=== PATIENT | female | born 1950 | race Caucasian/White ===

== ENCOUNTER 2018-03-07 08:59 | Inpatient (IN) | payer MEDICARE, MEDICAID ==
[2018-03-02 15:24] LABS: BASOPHILS % (AUTO) 0.2 % (0-1); EOSINOPHILS # (AUTO) 0.1 X10'3 (0-0.9); EOSINOPHILS % (AUTO) 1.3 % (0-6); LYMPHOCYTES # (AUTO) 1.2 X10'3 (1.1-4.8); LYMPHOCYTES % (AUTO) 24.4 % (21-51); MEAN CORPUSCULAR HEMOGLOBIN 30.6 PG (27.0-31.0); MEAN CORPUSCULAR HGB CONC 34.8 % (33.0-36.5); MEAN CORPUSCULAR VOLUME 87.8 FL (78-98); MEAN PLATELET VOLUME 6.9 FL (7.4-10.4); MONOCYTES # (AUTO) 0.6 X10'3 (0-0.9); MONOCYTES % (AUTO) 11.9 % (2-12); NEUTROPHILS % (AUTO) 62.2 % (42-75); PRE OP HEMATOCRIT 33.2 % (35.0-45.0); PRE OP HEMOGLOBIN 11.6 g/dL (12.0-16.0); PRE OP PLATELET COUNT 274 X10'3 (140-440); RED BLOOD COUNT 3.78 X10'6 (4.20-5.60); RED CELL DISTRIBUTION WIDTH 13.2 % (11.5-14.5)
[2018-03-02 15:36] LABS: PRE OP PROTIME 10.6 SECONDS (9.0-12.0)
[2018-03-02 15:40] LABS: ALBUMIN 3.7 G/DL (3.4-5.0); ALBUMIN/GLOBULIN RATIO 0.9 (1.1-1.5); ALKALINE PHOSPHATASE 143 IU/L (46-116); BLOOD UREA NITROGEN 14 MG/DL (7-18); BUN/CREATININE RATIO 22.6 (6.6-38.0); CALCIUM 8.8 MG/DL (8.5-10.1); CHLORIDE 96 MMOL/L (99-107); CREATININE 0.62 MG/DL (0.40-0.90); PRE OP ALT 24 U/L (30-65); PRE OP ANION GAP 7 (8-16); PRE OP AST 23 U/L (10-37); PRE OP BILIRUB, TOTAL 0.2 MG/DL (0.0-1.0); PRE OP GLUCOSE 97 MG/DL (70-104); PRE OP POTASSIUM 4.1 MMOL/L (3.4-5.1); PRE OP SODIUM 133 MMOL/L (135-145); TOTAL CARBON DIOXIDE 29.7 MMOL/L (24-32); TOTAL PROTEIN 7.7 G/DL (6.4-8.2); eGFR > 90 ML/MIN
[~2018-03-07] VITALS: Ht 142.2 cm; Wt 63.3 kg
[2018-03-07] VITALS (15 sets, daily range): BP systolic 85–184; BP diastolic 47–96
[~2018-03-07 08:59] MED LIST: ACET-2615 PO; ANAS1TAB PO; ASCO-22 PO; ATOR10TA87 PO; BUPR1PAT TOP; CARB200C4 PO; CLON0.2T PO; DOCU-28 PO; IBUP-1985 PO; LOPE2CAP PO; LOSA50TA37 PO; MULT-685; OXYB5TAB11 PO; QUET-1 PO; SERT50TA10 PO; TRAZ-143 PO; VANCOMYCIN INJ 1000 MG in NORMAL SALINE 250ml IV.SOLN IV ONE; ceFAZolin inj. 2,000 MG in dextrose 5%-water 100 ML IV ONE; famotidine 20mg tablet PO ONE; ringers solution, lacted 1,000 ML IV SCH; tranexamic acid inj. 1,000 MG in normal saline 100ml IV soln 90 ML IV ONE
[2018-03-07] MEDS ORDERED: ceFAZolin 1000mg inj ONE (09:30)
[2018-03-07] MEDS ORDERED: FERR325T28 PO (09:33)
[2018-03-07] MEDS ORDERED: sevoflurane 250ml liquid IH ONE (10:23)
[2018-03-07] MEDS ORDERED: midazolam 2 mg/2 ml injection ONE (10:28)
[2018-03-07] MEDS ORDERED: fentaNYL /PF 50mcg/ml 5ml ampule ONE (10:28)
[2018-03-07] MEDS ORDERED: rocuronium 10mg/ml inj IV ONE (11:16)
[2018-03-07] MEDS ORDERED: propofol inj 20 ML IV ONE (11:17)
[2018-03-07] MEDS ORDERED: labetalol 5mg/ml 20ml inj. IV ONE (11:17)
[2018-03-07] MEDS ORDERED: ringers solution, lacted 1,000 ML IV SCH (11:47)
[2018-03-07] MEDS ORDERED: ondansetron/PF 4mg/2ml inj IV PRN ×2 (11:50→13:05)
[2018-03-07] MEDS ORDERED: proCHLORperazine 10 MG/2 ml inj IV PRN (11:50)
[2018-03-07] MEDS ORDERED: morphine 4 MG/ML inj SYRINge IV PRN ×2 (11:50)
[2018-03-07] MEDS ORDERED: HYDROmorphone inj. 0.5 MG/0.5 ML DISP.SYRIN IV PRN ×2 (11:50)
[2018-03-07] MEDS ORDERED: hydrALAZINE 20mg/ml inj. IV PRN (11:50)
[2018-03-07] MEDS ORDERED: acetaminophen 1,000mg/100ml IV 100 ML IV PRN (11:50)
[2018-03-07] MEDS ORDERED: labetalol 20mg/4ml (5mg/ml) syringe IV PRN (11:50)
[2018-03-07] MEDS ORDERED: meperidine/PF 25mg/ml syringe IV PRN (11:50)
[2018-03-07] MEDS ORDERED: HYDROcodone/acetaminophen 10/325mg tab PO PRN (13:05)
[2018-03-07] MEDS ORDERED: HYDROmorphone 1 mg/ml syringe IV PRN (13:05)
[2018-03-07] MEDS ORDERED: bisacodyl 10mg suppository rectal RC PRN (13:05)
[2018-03-07] MEDS ORDERED: diphenhydrAMINE 25mg capsule PO PRN ×2 (13:05)
[2018-03-07] MEDS ORDERED: acetaminophen 325mg tablet PO PRN (13:05)
[2018-03-07] MEDS ORDERED: magnesium hydroxide 30ml (MOM) UD suspension PO PRN (13:05)
[2018-03-07] MEDS ORDERED: loperamide 2mg capsule PO PRN (13:05)
[2018-03-07] MEDS: potassium cl 20mEq in 1/2 NS 1,000 ML IV SCH (15:29)
[2018-03-07] MEDS: ceFAZolin 1GM/D5W- ADD-VANTAGE 50 ML IV SCH ×2 (15:54→23:50)
[2018-03-07] MEDS ORDERED: TRANEXAMIC ACID IV ONE (16:00)
[2018-03-07] MEDS ORDERED: NORMAL SALINE IV ONE (16:00)
[2018-03-07] MEDS ORDERED: aspirin 325mg tablet PO SCH (17:30)
[2018-03-07] MEDS: HYDROcodone/acetaminophen 10/325mg tab PO PRN (18:34)
[2018-03-07] MEDS ORDERED: vancomycin/NS 1 GM ADD-VANTAGE 250 ML IV SCH (20:00)
[2018-03-07] MEDS: cloNIDine 0.1 mg tablet PO SCH (20:31)
[2018-03-07] MEDS: docusate sod 100mg capsule PO SCH (20:31)
[2018-03-07] MEDS: anastrozole 1 MG tablet PO SCH (20:32)
[2018-03-07] MEDS: traZODone 50mg tablet PO SCH (20:32)
[2018-03-07] MEDS: carBAMazepine Ext. Release 200 MG TAB.ER.12H PO SCH (20:32)
[2018-03-07] MEDS: quetiapine 100mg tablet PO SCH (20:33)
[2018-03-07] MEDS: oxybutynin 5mg tablet PO SCH (20:33)
[2018-03-07] MEDS: sennosides 8.6mg tablet PO SCH (20:33)
[2018-03-08] MEDS: potassium cl 20mEq in 1/2 NS 1,000 ML IV SCH ×2 (02:24→08:25)
[2018-03-08 02:45] VITALS: BP 128/65
[2018-03-08] MEDS: HYDROcodone/acetaminophen 10/325mg tab PO PRN ×2 (05:27→12:43)
[2018-03-08 06:15] VITALS: BP 132/67
[2018-03-08 07:08] LABS: BASOPHILS % (AUTO) 0.2 % (0-1); EOSINOPHILS % (AUTO) 0 % (0-6); HEMATOCRIT 26.8 % (35.0-45.0); HEMOGLOBIN 9.3 g/dl (12.0-16.0); LYMPHOCYTES # (AUTO) 0.7 X10'3 (1.1-4.8); LYMPHOCYTES % (AUTO) 8.5 % (21-51); MEAN CORPUSCULAR HEMOGLOBIN 30.2 PG (27.0-31.0); MEAN CORPUSCULAR HGB CONC 34.5 % (33.0-36.5); MEAN CORPUSCULAR VOLUME 87.5 FL (78-98); MEAN PLATELET VOLUME 7.3 FL (7.4-10.4); MONOCYTES # (AUTO) 0.9 X10'3 (0-0.9); MONOCYTES % (AUTO) 10.3 % (2-12); NEUTROPHILS # (AUTO) 6.8 X10'3 (1.8-7.7); PLATELET COUNT 253 X10'3 (140-440); RED BLOOD COUNT 3.06 X10'6 (4.20-5.60); RED CELL DISTRIBUTION WIDTH 13.6 % (11.5-14.5); WHITE BLOOD COUNT 8.4 X10'3 (4.5-11.0)
[2018-03-08 07:33] LABS: ALANINE AMINOTRANSFERASE 19 U/L (12-78); ALBUMIN 2.9 G/DL (3.4-5.0); ALBUMIN/GLOBULIN RATIO 0.9 (1.1-1.5); ALKALINE PHOSPHATASE 91 IU/L (46-116); ANION GAP 8 (8-16); ASPARTATE AMINO TRANSFERASE 27 U/L (10-37); BILIRUBIN,TOTAL 0.3 MG/DL (0.1-1.0); BLOOD UREA NITROGEN 12 MG/DL (7-18); BUN/CREATININE RATIO 18.8 (6.6-38.0); CALCIUM 8.2 MG/DL (8.5-10.1); CHLORIDE 100 MMOL/L (99-107); CREATININE 0.64 MG/DL (0.40-0.90); GLUCOSE 136 MG/DL (70-104); SODIUM 133 MMOL/L (135-145); TOTAL PROTEIN 6.2 G/DL (6.4-8.2); eGFR > 90 ML/MIN
[2018-03-08] MEDS: losartan 50mg tablet PO SCH (08:23)
[2018-03-08] MEDS: carBAMazepine Ext. Release 200 MG TAB.ER.12H PO SCH ×3 (08:23→20:26)
[2018-03-08] MEDS: oxybutynin 5mg tablet PO SCH ×3 (08:23→20:27)
[2018-03-08] MEDS: sertraline 50mg tablet PO SCH (08:23)
[2018-03-08] MEDS: docusate sod 100mg capsule PO SCH ×2 (08:23→20:26)
[2018-03-08] MEDS: cloNIDine 0.1 mg tablet PO SCH ×2 (08:23→20:28)
[2018-03-08] MEDS: aspirin 81mg tablet.DR PO SCH (08:24)
[2018-03-08 10:00] VITALS: BP 93/55
[2018-03-08 14:15] VITALS: BP 123/68
[2018-03-08] MEDS ORDERED: normal saline 1000ml 1,000 ML IV ONE (16:45)
[2018-03-08 18:00] VITALS: BP 145/75
[2018-03-08] MEDS: traZODone 50mg tablet PO SCH (20:26)
[2018-03-08] MEDS: sennosides 8.6mg tablet PO SCH (20:28)
[2018-03-08] MEDS: anastrozole 1 MG tablet PO SCH (20:28)
[2018-03-08] MEDS: quetiapine 100mg tablet PO SCH (20:28)
[2018-03-08 22:00] VITALS: BP 102/57
[2018-03-09 02:00] VITALS: BP 88/52
[2018-03-09 05:00] VITALS: BP 92/50
[2018-03-09] MEDS: HYDROcodone/acetaminophen 10/325mg tab PO PRN (05:38)
[2018-03-09 05:47] LABS: BASOPHILS % (AUTO) 0.2 % (0-1); EOSINOPHILS # (AUTO) 0.1 X10'3 (0-0.9); EOSINOPHILS % (AUTO) 1.1 % (0-6); HEMATOCRIT 22.3 % (35.0-45.0); HEMOGLOBIN 7.9 g/dl (12.0-16.0); LYMPHOCYTES % (AUTO) 11.7 % (21-51); MEAN CORPUSCULAR HEMOGLOBIN 30.9 PG (27.0-31.0); MEAN CORPUSCULAR HGB CONC 35.1 % (33.0-36.5); MEAN CORPUSCULAR VOLUME 87.8 FL (78-98); MEAN PLATELET VOLUME 7.4 FL (7.4-10.4); MONOCYTES # (AUTO) 1.2 X10'3 (0-0.9); MONOCYTES % (AUTO) 13.6 % (2-12); NEUTROPHILS # (AUTO) 6.6 X10'3 (1.8-7.7); NEUTROPHILS % (AUTO) 73.4 % (42-75); PLATELET COUNT 165 X10'3 (140-440); RED BLOOD COUNT 2.54 X10'6 (4.20-5.60)
[2018-03-09 05:53] LABS: ALANINE AMINOTRANSFERASE 20 U/L (12-78); ALBUMIN 2.4 G/DL (3.4-5.0); ALBUMIN/GLOBULIN RATIO 0.7 (1.1-1.5); ALKALINE PHOSPHATASE 74 IU/L (46-116); ANION GAP 6 (8-16); ASPARTATE AMINO TRANSFERASE 21 U/L (10-37); BILIRUBIN,TOTAL 0.4 MG/DL (0.1-1.0); BLOOD UREA NITROGEN 14 MG/DL (7-18); BUN/CREATININE RATIO 18.7 (6.6-38.0); CALCIUM 8.3 MG/DL (8.5-10.1); CHLORIDE 101 MMOL/L (99-107); CREATININE 0.75 MG/DL (0.40-0.90); GLUCOSE 99 MG/DL (70-104); POTASSIUM 4.2 MMOL/L (3.5-5.1); SODIUM 131 MMOL/L (135-145); TOTAL PROTEIN 5.7 G/DL (6.4-8.2); eGFR 77 ML/MIN
[2018-03-09] MEDS: oxybutynin 5mg tablet PO SCH ×3 (07:34→21:28)
[2018-03-09] MEDS: docusate sod 100mg capsule PO SCH ×2 (07:34→20:10)
[2018-03-09] MEDS: carBAMazepine Ext. Release 200 MG TAB.ER.12H PO SCH ×3 (07:34→21:28)
[2018-03-09] MEDS: aspirin 81mg tablet.DR PO SCH ×2 (07:34→17:28)
[2018-03-09] MEDS: sertraline 50mg tablet PO SCH (07:35)
[2018-03-09] MEDS: cloNIDine 0.1 mg tablet PO SCH ×2 (07:39→20:10)
[2018-03-09] MEDS: losartan 50mg tablet PO SCH (07:39)
[2018-03-09] MEDS ORDERED: HYDROcodone/acetaminophen 10/325mg tab PO ONE (07:40)
[2018-03-09 10:00] VITALS: BP 110/58
[2018-03-09] MEDS: potassium cl 20mEq in 1/2 NS 1,000 ML IV SCH (12:22)
[2018-03-09 18:00] VITALS: BP 143/80
[2018-03-09] MEDS: sennosides 8.6mg tablet PO SCH (21:00)
[2018-03-09] MEDS: anastrozole 1 MG tablet PO SCH (21:25)
[2018-03-09] MEDS: traZODone 50mg tablet PO SCH (21:28)
[2018-03-09] MEDS: quetiapine 100mg tablet PO SCH (21:28)
[2018-03-09 22:00] VITALS: BP 103/53
[2018-03-10 05:57] LABS: BASOPHILS % (AUTO) 0.2 % (0-1); EOSINOPHILS % (AUTO) 0.1 % (0-6); HEMATOCRIT 22.4 % (35.0-45.0); HEMOGLOBIN 7.8 g/dl (12.0-16.0); LYMPHOCYTES % (AUTO) 13.7 % (21-51); MEAN CORPUSCULAR HEMOGLOBIN 30.5 PG (27.0-31.0); MEAN CORPUSCULAR HGB CONC 34.6 % (33.0-36.5); MEAN CORPUSCULAR VOLUME 88.2 FL (78-98); MEAN PLATELET VOLUME 7.2 FL (7.4-10.4); MONOCYTES # (AUTO) 0.8 X10'3 (0-0.9); MONOCYTES % (AUTO) 10.6 % (2-12); NEUTROPHILS # (AUTO) 5.6 X10'3 (1.8-7.7); NEUTROPHILS % (AUTO) 75.4 % (42-75); PLATELET COUNT 177 X10'3 (140-440); RED BLOOD COUNT 2.54 X10'6 (4.20-5.60); RED CELL DISTRIBUTION WIDTH 13.5 % (11.5-14.5); WHITE BLOOD COUNT 7.5 X10'3 (4.5-11.0)
[2018-03-10 06:00] VITALS: BP 124/71
[2018-03-10 06:36] LABS: ALANINE AMINOTRANSFERASE 16 U/L (12-78); ALBUMIN 2.2 G/DL (3.4-5.0); ALBUMIN/GLOBULIN RATIO 0.6 (1.1-1.5); ALKALINE PHOSPHATASE 76 IU/L (46-116); ANION GAP 9 (8-16); ASPARTATE AMINO TRANSFERASE 25 U/L (10-37); BILIRUBIN,TOTAL 0.3 MG/DL (0.1-1.0); BLOOD UREA NITROGEN 10 MG/DL (7-18); BUN/CREATININE RATIO 18.2 (6.6-38.0); CALCIUM 8.2 MG/DL (8.5-10.1); CHLORIDE 101 MMOL/L (99-107); CREATININE 0.55 MG/DL (0.40-0.90); GLUCOSE 98 MG/DL (70-104); POTASSIUM 4.2 MMOL/L (3.5-5.1); SODIUM 133 MMOL/L (135-145); TOTAL CARBON DIOXIDE 23.3 MMOL/L (24-32); eGFR > 90 ML/MIN
[2018-03-10] MEDS: sertraline 50mg tablet PO SCH (07:58)
[2018-03-10] MEDS: cloNIDine 0.1 mg tablet PO SCH (07:58)
[2018-03-10] MEDS: losartan 50mg tablet PO SCH (07:58)
[2018-03-10] MEDS: aspirin 81mg tablet.DR PO SCH (07:58)
[2018-03-10] MEDS: oxybutynin 5mg tablet PO SCH ×2 (07:58→13:30)
[2018-03-10] MEDS: docusate sod 100mg capsule PO SCH (07:58)
[2018-03-10] MEDS: HYDROcodone/acetaminophen 10/325mg tab PO PRN (07:59)
[2018-03-10] MEDS: carBAMazepine Ext. Release 200 MG TAB.ER.12H PO SCH ×2 (08:03→14:16)
[2018-03-10 10:00] VITALS: BP 86/46
[2018-03-11] MEDS ORDERED: BUPRENORPHINE 5 MCG/HR TOP SCH (08:00)
== END 2018-03-10 18:00 | DRG 470 ==
LOC: PAS IN 08:59 → EDSTATUS 11:00 → ORTHO 4S 14:30
PROVIDERS: ADMIT Orthopaedic Surgery; ATTEND Orthopaedic Surgery
PROC: 0SR90JZ Replacement of Right Hip Joint with Synthetic Substitute, Open Approach (ICD-10-PCS; principal; 2018-03-07 10:23)
DX: M16.11 Unilateral primary osteoarthritis, right hip (principal); D62 Acute posthemorrhagic anemia; F32.9 Major depressive disorder, single episode, unspecified; I10 Essential (primary) hypertension; R62.50 Unspecified lack of expected normal physiological development in childhood; Z88.8 Allergy status to other drugs, medicaments and biological substances; Z85.3 Personal history of malignant neoplasm of breast; Z87.891 Personal history of nicotine dependence; Z87.820 Personal history of traumatic brain injury; Z92.3 Personal history of irradiation
CPT/HCPCS: 36415; 80053; 85025; 85610; 85730; 86885; 86900; 86901; 86920; 87070; 93005; 97110; 97116; 97161; 97530; A6449; A7000; C1758; C1776; J0131; J0360; J0690; J2250; J2405; J2704; J3010; J3370; J3490; J7030; J7060; J7120

== ENCOUNTER 2019-03-06 22:05 | Emergency (ER) | payer MEDICARE, MEDICAID ==
[~2019-03-06] VITALS: Ht 274.3 cm; Wt 53.7 kg
[~2019-03-06 22:05] MED LIST changes: -ACET-2615 PO; -ASCO-22 PO; -ATOR10TA87 PO; -IBUP-1985 PO; -LOSA50TA37 PO; +LOSA50TA64 PO; -MULT-685; -TRAZ-143 PO; +TRAZ-251 PO; -VANCOMYCIN INJ 1000 MG in NORMAL SALINE 250ml IV.SOLN IV ONE; -ceFAZolin inj. 2,000 MG in dextrose 5%-water 100 ML IV ONE; -famotidine 20mg tablet PO ONE; -ringers solution, lacted 1,000 ML IV SCH; -tranexamic acid inj. 1,000 MG in normal saline 100ml IV soln 90 ML IV ONE
[2019-03-06 23:14] VITALS: BP 177/81
== END 2019-03-06 23:43 | disposition home or self-care (01) ==
LOC: ER 22:06
DX: I10 Essential (primary) hypertension (principal); C50.919 Malignant neoplasm of unspecified site of unspecified female breast; Z88.8 Allergy status to other drugs, medicaments and biological substances; Z79.899 Other long term (current) drug therapy; Z86.14 Personal history of Methicillin resistant Staphylococcus aureus infection; Z98.890 Other specified postprocedural states
CPT/HCPCS: 99281

== ENCOUNTER 2019-04-16 18:54 | Emergency (ER) | payer MEDICARE, MEDICAID ==
[~2019-04-16] VITALS: Ht 152.4 cm; Wt 60.0 kg
[~2019-04-16 18:54] MED LIST changes: -CARB200C4 PO; +CARB200C7 PO; -OXYB5TAB11 PO; +OXYB5TAB16 PO
[2019-04-16 19:22] LABS: CLARITY,URINE CLEAR (Clear); COLOR,URINE YELLOW (Yellow); GLUCOSE, URINE NEGATIVE (Neg); KETONES,URINE NEGATIVE (Neg); LEUKOCYTE ESTERASE ,URINE NEGATIVE (Neg); NITRITES, URINE NEGATIVE (Neg); OCCULT BLOOD,URINE TRACE-INTACT (Neg); PROTEIN,URINE TRACE mg/dl (Neg); UROBILINOGEN,URINE 0.2 E.U/dL (0.2-1.0)
[2019-04-16 19:30] LABS: UA COLLECTION TYPE CLN CATCH MIDSTREAM
[2019-04-16 19:34] LABS: AMORPHOUS URATES 1+; BACTERIA,URINE 1+ /HPF (Neg); MUCUS STRANDS FEW /LPF (Neg); RBC,URINE 0-2 /HPF (0-2); SQUAMOUS EPITHELIAL CELL,UR FEW /LPF (FEW); WBC,URINE 0-4 /HPF (0-4)
[2019-04-16 20:10] VITALS: BP 157/100
[2019-04-16 20:20] LABS: BASOPHILS # (AUTO) 0.1 X10'3 (0-0.2); BASOPHILS % (AUTO) 0.6 % (0-1); EOSINOPHILS # (AUTO) 0.2 X10'3 (0-0.9); EOSINOPHILS % (AUTO) 1.6 % (0-6); HEMATOCRIT 35.6 % (35.0-45.0); HEMOGLOBIN 12.5 g/dl (12.0-16.0); LYMPHOCYTES # (AUTO) 1.9 X10'3 (1.1-4.8); MEAN CORPUSCULAR HGB CONC 35.2 g/dL (33.0-36.5); MEAN CORPUSCULAR VOLUME 88.1 FL (78-98); MEAN PLATELET VOLUME 7.2 FL (7.4-10.4); MONOCYTES # (AUTO) 0.9 X10'3 (0-0.9); MONOCYTES % (AUTO) 10.1 % (2-12); NEUTROPHILS # (AUTO) 6.3 X10'3 (1.8-7.7); NEUTROPHILS % (AUTO) 67.7 % (42-75); PLATELET COUNT 268 X10'3 (140-440); RED BLOOD COUNT 4.04 X10'6 (4.20-5.60); RED CELL DISTRIBUTION WIDTH 12.9 % (11.5-14.5); WHITE BLOOD COUNT 9.3 X10'3 (4.5-11.0)
[2019-04-16 20:34] LABS: ALANINE AMINOTRANSFERASE 25 U/L (12-78); ALBUMIN 3.7 G/DL (3.4-5.0); ALBUMIN/GLOBULIN RATIO 0.9 (1.1-1.5); ALKALINE PHOSPHATASE 119 IU/L (46-116); ANION GAP 9 (8-16); ASPARTATE AMINO TRANSFERASE 22 U/L (10-37); BILIRUBIN,TOTAL 0.3 MG/DL (0.1-1.0); BLOOD UREA NITROGEN 12 MG/DL (7-18); BUN/CREATININE RATIO 22.6 (6.6-38.0); CALCIUM 8.9 MG/DL (8.5-10.1); CHLORIDE 97 MMOL/L (99-107); CREATININE 0.53 MG/DL (0.40-0.90); GLUCOSE 108 MG/DL (70-104); PARTIAL THROMBOPLASTIN TIME 32 SECONDS (22-32); POTASSIUM 4.2 MMOL/L (3.5-5.1); SODIUM 134 MMOL/L (135-145); TOTAL CARBON DIOXIDE 27.6 MMOL/L (24-32); TOTAL PROTEIN 7.6 G/DL (6.4-8.2); eGFR > 90 ML/MIN
[2019-04-16 20:36] LABS: TROPONIN I < 0.04 NG/ML (0.0-0.05)
--- NOTE | 2019-04-16 21:10 | NUR ---
report called to elsie owens at [facility] emergency dept.
[2019-04-16 21:19] LABS: CARBAMAZEPINE (TEGRETOL) 11.1 UG/ML (4.0-12.0)
== END 2019-04-16 22:56 | disposition short-term general hospital (02) ==
LOC: ER 18:55
DX: S06.5X0A Traumatic subdural hemorrhage without loss of consciousness, initial encounter (principal); R35.0 Frequency of micturition; I10 Essential (primary) hypertension; Z88.4 Allergy status to anesthetic agent; Z88.8 Allergy status to other drugs, medicaments and biological substances; Z79.899 Other long term (current) drug therapy; Z86.14 Personal history of Methicillin resistant Staphylococcus aureus infection; Z85.3 Personal history of malignant neoplasm of breast; Z98.890 Other specified postprocedural states; W18.39XA Other fall on same level, initial encounter; Y93.01 Activity, walking, marching and hiking; Y92.091 Bathroom in other non-institutional residence as the place of occurrence of the external cause; Y99.8 Other external cause status
CPT/HCPCS: 36415; 70450; 71045; 80053; 80156; 81001; 82140; 84484; 85025; 85610; 85730; 93005; 99285

== ENCOUNTER 2019-10-22 11:27 | Emergency (ER) | payer MEDICARE, MEDICAID ==
[~2019-10-22] VITALS: Ht 144.8 cm; Wt 55.0 kg
[2019-10-22] MEDS ORDERED: diphenhydrAMINE 50 mg/ml inj IV ONE (12:00)
[2019-10-22] MEDS ORDERED: metoclopramide 5 mg/ml inj IV ONE (12:00)
[2019-10-22 12:10] LABS: BASOPHILS % (AUTO) 0.2 % (0-1); EOSINOPHILS % (AUTO) 0.2 % (0-6); HEMATOCRIT 41.1 % (35.0-45.0); HEMOGLOBIN 14.3 g/dl (12.0-16.0); LYMPHOCYTES # (AUTO) 0.4 X10'3 (1.1-4.8); LYMPHOCYTES % (AUTO) 3.1 % (21-51); MEAN CORPUSCULAR HEMOGLOBIN 30.7 PG (27.0-31.0); MEAN CORPUSCULAR HGB CONC 34.7 g/dL (33.0-36.5); MEAN CORPUSCULAR VOLUME 88.5 FL (78-98); MEAN PLATELET VOLUME 7.3 FL (7.4-10.4); MONOCYTES # (AUTO) 0.4 X10'3 (0-0.9); MONOCYTES % (AUTO) 2.9 % (2-12); NEUTROPHILS # (AUTO) 12.2 X10'3 (1.8-7.7); NEUTROPHILS % (AUTO) 93.6 % (42-75); PLATELET COUNT 241 X10'3 (140-440); RED BLOOD COUNT 4.65 X10'6 (4.20-5.60); RED CELL DISTRIBUTION WIDTH 13.5 % (11.5-14.5)
[2019-10-22 12:26] LABS: ALANINE AMINOTRANSFERASE 24 U/L (12-78); ALBUMIN 4.4 G/DL (3.4-5.0); ALBUMIN/GLOBULIN RATIO 1.1 (1.1-1.5); ALKALINE PHOSPHATASE 107 IU/L (46-116); ANION GAP 8 (8-16); ASPARTATE AMINO TRANSFERASE 23 U/L (10-37); BILIRUBIN,TOTAL 0.3 MG/DL (0.1-1.0); BLOOD UREA NITROGEN 17 MG/DL (7-18); BUN/CREATININE RATIO 30.9 (6.6-38.0); CHLORIDE 100 MMOL/L (99-107); CREATININE 0.55 MG/DL (0.40-0.90); GLUCOSE 122 MG/DL (70-104); SODIUM 137 MMOL/L (135-145); TOTAL CARBON DIOXIDE 29.5 MMOL/L (24-32); TOTAL PROTEIN 8.3 G/DL (6.4-8.2); eGFR > 90 ML/MIN
[2019-10-22 12:28] LABS: AMYLASE 59 U/L (25-115); LIPASE 134 U/L (73-393)
[2019-10-22] MEDS ORDERED: losartan 50mg tablet PO ONE (13:15)
[2019-10-22] MEDS ORDERED: ONDA4TAB12 PO (13:25)
[2019-10-22 14:11] VITALS: BP 147/95
[2019-10-22 14:42] LABS: CLARITY,URINE SLIGHTLY CLOUDY (Clear); COLOR,URINE YELLOW (Yellow); GLUCOSE, URINE NEGATIVE (Neg); KETONES,URINE NEGATIVE (Neg); LEUKOCYTE ESTERASE ,URINE NEGATIVE (Neg); NITRITES, URINE NEGATIVE (Neg); OCCULT BLOOD,URINE SMALL (Neg); PROTEIN,URINE TRACE mg/dl (Neg); UROBILINOGEN,URINE 0.2 E.U/dL (0.2-1.0)
[2019-10-22 14:44] LABS: UA COLLECTION TYPE CLN CATCH MIDSTREAM
[2019-10-22 14:49] LABS: BACTERIA,URINE 1+ /HPF (Neg); WBC,URINE 0-4 /HPF (0-4)
[2019-10-22 14:50] LABS: AMORPHOUS PHOSPHATES 2+; MUCUS STRANDS NONE SEEN /LPF (Neg); RENAL CELLS, URINE FEW /HPF; SQUAMOUS EPITHELIAL CELL,UR MODERATE /LPF (FEW)
== END 2019-10-22 14:13 | disposition home or self-care (01) ==
LOC: ER 11:28
DX: R11.2 Nausea with vomiting, unspecified (principal); I10 Essential (primary) hypertension; Z86.14 Personal history of Methicillin resistant Staphylococcus aureus infection; Z85.3 Personal history of malignant neoplasm of breast; Z98.890 Other specified postprocedural states; Z88.8 Allergy status to other drugs, medicaments and biological substances; Z79.899 Other long term (current) drug therapy
CPT/HCPCS: 36415; 80053; 80156; 81001; 82150; 83690; 85025; 96374; 96375; 99283; J1200; J2765

== ENCOUNTER 2021-10-03 14:20 | Emergency (ER) | payer MEDICARE, MEDICAID ==
[~2021-10-03] VITALS: Ht 152.4 cm; Wt 61.0 kg
[~2021-10-03 14:20] MED LIST changes: +AMIO200T61 PO; +APIX5TAB3 PO; +ATOR20TA66 PO; -BUPR1PAT TOP; +CALC-2 PO; -CARB200C7 PO; +CARB200T40 PO; +CEFD300C3 PO; -CLON0.2T PO; +DILT60TA9 PO; +FERR325T29 PO; +FURO20TA4 PO; -LOPE2CAP PO; -LOSA50TA64 PO; +MAGN400T39 PO; +METO-395 PO; +MULT-1085 PO; +POLY119P2 PO; -QUET-1 PO; +QUET25TA36 PO; +SENN-263 PO; +SERT-433 PO; -SERT50TA10 PO
[2021-10-03 15:16] LABS: BASOPHILS % (AUTO) 0.2 % (0-1); EOSINOPHILS % (AUTO) 0.6 % (0-6); HEMATOCRIT 38.5 % (35.0-45.0); HEMOGLOBIN 13.2 g/dl (12.0-16.0); LYMPHOCYTES # (AUTO) 1.1 X10'3 (1.1-4.8); LYMPHOCYTES % (AUTO) 17.7 % (21-51); MEAN CORPUSCULAR HEMOGLOBIN 30.9 PG (27.0-31.0); MEAN CORPUSCULAR HGB CONC 34.4 g/dL (33.0-36.5); MEAN CORPUSCULAR VOLUME 89.9 FL (78-98); MEAN PLATELET VOLUME 7.1 FL (7.4-10.4); MONOCYTES # (AUTO) 0.6 X10'3 (0-0.9); MONOCYTES % (AUTO) 9.9 % (2-12); NEUTROPHILS # (AUTO) 4.6 X10'3 (1.8-7.7); NEUTROPHILS % (AUTO) 71.6 % (42-75); PLATELET COUNT 269 X10'3 (140-440); RED BLOOD COUNT 4.28 X10'6 (4.20-5.60); RED CELL DISTRIBUTION WIDTH 13.3 % (11.5-14.5); WHITE BLOOD COUNT 6.4 X10'3 (4.5-11.0)
[2021-10-03 15:24] LABS: APTT 29 SECONDS (22-32)
[2021-10-03 15:37] LABS: ALANINE AMINOTRANSFERASE 25 U/L (12-78); ALBUMIN 3.7 G/DL (3.4-5.0); ALBUMIN/GLOBULIN RATIO 0.9 (1.1-1.5); ALKALINE PHOSPHATASE 91 IU/L (46-116); ANION GAP 10 (8-16); ASPARTATE AMINO TRANSFERASE 17 U/L (10-37); BILIRUBIN,TOTAL 0.2 MG/DL (0.1-1.0); BLOOD UREA NITROGEN 21 MG/DL (7-18); BUN/CREATININE RATIO 28.8 (6.6-38.0); CALCIUM 8.9 MG/DL (8.5-10.1); CHLORIDE 101 MMOL/L (99-107); CREATININE 0.73 MG/DL (0.40-0.90); GLUCOSE 126 MG/DL (70-104); POTASSIUM 4.3 MMOL/L (3.5-5.1); SODIUM 136 MMOL/L (135-145); TOTAL CARBON DIOXIDE 24.9 MMOL/L (24-32); TOTAL PROTEIN 7.8 G/DL (6.4-8.2); eGFR 79 ML/MIN
--- NOTE | 2021-10-03 17:32 | NUR ---
relieving RN for lunch, pt is being evaluated by teleneuro, she did pass swallow test
[2021-10-03] MEDS ORDERED: iohexol 350MG/ML 100ml bottle IV ONE (17:52)
--- NOTE | 2021-10-03 18:05 | NUR ---
Back from CT.
--- NOTE | 2021-10-03 18:11 | NUR ---
Per staff that is at the bedside, Pt became dizzy and her b/p was 79/57. After 15 min her b/p was 115/78.
[2021-10-03] MEDS ORDERED: diltiazem 5mg/ml 5ml inj. IV ONE (18:40)
[2021-10-03] MEDS ORDERED: aspirin 325mg tablet PO ONE (18:40)
[2021-10-03 19:22] VITALS: BP 120/82
--- NOTE | 2021-10-03 19:35 | NUR ---
Report given to Hue, at [facility] on [address]. Pt given d/c paperwork. She will be driven home by an employee of [facility], [place].
== END 2021-10-03 19:35 | disposition home or self-care (01) ==
LOC: ER 14:20
DX: G45.9 Transient cerebral ischemic attack, unspecified (principal); Z20.822 Contact with and (suspected) exposure to COVID-19; I10 Essential (primary) hypertension; I48.91 Unspecified atrial fibrillation; G40.909 Epilepsy, unspecified, not intractable, without status epilepticus; Z85.3 Personal history of malignant neoplasm of breast; Z86.14 Personal history of Methicillin resistant Staphylococcus aureus infection; Z88.1 Allergy status to other antibiotic agents; Z88.8 Allergy status to other drugs, medicaments and biological substances; Z79.899 Other long term (current) drug therapy
CPT/HCPCS: 36415; 70450; 70496; 70498; 71045; 80053; 85025; 85610; 85730; 87635; 93005; 96374; 99285; C9803; J3490; Q9967

== ENCOUNTER 2022-05-26 13:29 | Emergency (ER) | payer MEDICARE, MEDICAID ==
[~2022-05-26] VITALS: Ht 154.9 cm; Wt 68.8 kg
[~2022-05-26 13:29] MED LIST changes: -AMIO200T61 PO; -CEFD300C3 PO
[2022-05-26 14:18] LABS: BASOPHILS % (AUTO) 0.4 % (0-1); EOSINOPHILS % (AUTO) 0.6 % (0-6); HEMATOCRIT 38.7 % (35.0-45.0); HEMOGLOBIN 13.1 g/dl (12.0-16.0); LYMPHOCYTES # (AUTO) 1.7 X10'3 (1.1-4.8); LYMPHOCYTES % (AUTO) 20.9 % (21-51); MEAN CORPUSCULAR HEMOGLOBIN 30.7 PG (27.0-31.0); MEAN CORPUSCULAR HGB CONC 33.9 g/dL (33.0-36.5); MEAN CORPUSCULAR VOLUME 90.4 FL (78-98); MEAN PLATELET VOLUME 7.8 FL (7.4-10.4); MONOCYTES # (AUTO) 0.8 X10'3 (0-0.9); MONOCYTES % (AUTO) 9.2 % (2-12); NEUTROPHILS # (AUTO) 5.7 X10'3 (1.8-7.7); NEUTROPHILS % (AUTO) 68.9 % (42-75); PLATELET COUNT 262 X10'3 (140-440); RED BLOOD COUNT 4.28 X10'6 (4.20-5.60); RED CELL DISTRIBUTION WIDTH 13.8 % (11.5-14.5); WHITE BLOOD COUNT 8.3 X10'3 (4.5-11.0)
[2022-05-26 14:26] LABS: CLARITY,URINE SLIGHTLY CLOUDY (Clear); COLOR,URINE YELLOW (Yellow); GLUCOSE, URINE NEGATIVE (Neg); KETONES,URINE TRACE mg/dl (Neg); LEUKOCYTE ESTERASE ,URINE TRACE (Neg); NITRITES, URINE POSITIVE (Neg); OCCULT BLOOD,URINE TRACE-INTACT (Neg); PH,URINE 5.5 (4.8-8.0); PROTEIN,URINE 30 mg/dl (Neg); UROBILINOGEN,URINE 0.2 E.U/dL (0.2-1.0)
[2022-05-26 14:29] LABS: UA COLLECTION TYPE CLN CATCH MIDSTREAM
[2022-05-26 14:32] LABS: BACTERIA,URINE 4+ /HPF (Neg); MUCUS STRANDS NONE SEEN /LPF (Neg); RBC,URINE NONE SEEN /HPF (0-2); SQUAMOUS EPITHELIAL CELL,UR FEW /LPF (FEW)
[2022-05-26 14:36] LABS: ALANINE AMINOTRANSFERASE 42 U/L (12-78); ALKALINE PHOSPHATASE 93 IU/L (46-116); ANION GAP 11 (8-16); ASPARTATE AMINO TRANSFERASE 25 U/L (10-37); BILIRUBIN,TOTAL 0.4 MG/DL (0.1-1.0); BLOOD UREA NITROGEN 22 MG/DL (7-18); BUN/CREATININE RATIO 28.6 (6.6-38.0); CALCIUM 8.7 MG/DL (8.5-10.1); CHLORIDE 104 MMOL/L (99-107); CREATININE 0.77 MG/DL (0.40-0.90); GLUCOSE 106 MG/DL (70-104); POTASSIUM 4.5 MMOL/L (3.5-5.1); SODIUM 140 MMOL/L (135-145); TOTAL CARBON DIOXIDE 24.6 MMOL/L (24-32); eGFR 74 ML/MIN
[2022-05-26] MEDS ORDERED: amiodarone 200mg tablet PO ONE (16:35)
[2022-05-26] MEDS ORDERED: cephalexin 250mg capsule PO ONE (16:35)
[2022-05-26] MEDS ORDERED: furosemide 20MG tablet PO ONE (16:35)
[2022-05-26] MEDS ORDERED: CEPH-585 PO (16:50)
[2022-05-26 17:00] VITALS: BP 191/117
[2022-06-02] MEDS ORDERED: METO-411 PO (14:01)
[2022-06-02] MEDS ORDERED: FURO-150 PO (14:01)
[2022-06-02] MEDS ORDERED: CEPH500C81 PO (14:01)
[2022-06-02] MEDS ORDERED: AMIO200T61 PO (14:01)
[2022-06-02] MEDS ORDERED: CALC-5 PO (14:02)
[2022-06-02] MEDS ORDERED: ANAS1TAB10 PO (14:02)
[2022-06-02] MEDS ORDERED: APIX5TAB3 PO (14:02)
[2022-06-02] MEDS ORDERED: DILT-96 PO (14:02)
[2022-06-02] MEDS ORDERED: DOCU-342 PO (14:02)
[2022-06-02] MEDS ORDERED: CARB200T8 PO (14:02)
[2022-06-02] MEDS ORDERED: SERT-434 PO (14:02)
[2022-06-02] MEDS ORDERED: MAGN400T39 PO (14:37)
[2022-06-02] MEDS ORDERED: CLON0.1T2 PO (14:37)
[2022-06-02] MEDS ORDERED: MULT-382 PO (14:37)
== END 2022-05-26 17:32 | disposition home or self-care (01) ==
LOC: ER 13:29
DX: N39.0 Urinary tract infection, site not specified (principal); R06.02 Shortness of breath; R06.2 Wheezing; R62.50 Unspecified lack of expected normal physiological development in childhood; I48.91 Unspecified atrial fibrillation; E78.00 Pure hypercholesterolemia, unspecified; I10 Essential (primary) hypertension; Z86.14 Personal history of Methicillin resistant Staphylococcus aureus infection; Z85.3 Personal history of malignant neoplasm of breast; Z87.891 Personal history of nicotine dependence; Z79.899 Other long term (current) drug therapy
CPT/HCPCS: 36415; 71045; 80053; 81001; 83880; 84484; 85025; 87077; 87088; 87186; 93005; 99285

== ENCOUNTER 2024-02-10 09:10 | Outpatient (CLI) | payer MEDICARE, MEDICAID ==
[~2024-02-10] VITALS: Ht 152.4 cm; Wt 77.0 kg
[~2024-02-10 09:10] MED LIST changes: +AMI200T PO; -ANAS1TAB PO; +ANAS1TAB10 PO; -CALC-2 PO; +CALC-5 PO; -CARB200T40 PO; +CARB200T8 PO; -DILT60TA9 PO; -DOCU-28 PO; +DOCU-391 PO; -FURO20TA4 PO; +MAGN400C PO; -MAGN400T39 PO; -METO-395 PO; -MULT-1085 PO; +MULT-382 PO; +OXYB15TA19 PO; -OXYB5TAB16 PO; -POLY119P2 PO; +SACU1TAB7 PO; -SERT-433 PO; +SERT-434 PO; +SPIR25TA PO
[2024-02-10] MEDS: regadenoson 0.4mg/5ml syringe IV ONE (10:26)
[2024-02-10 10:27] VITALS: BP 132/86; PULSE 149; RESP 18; O2SAT 91
[2024-02-18] MEDS ORDERED: DILT30TA2 PO (10:28)
[2024-02-18] MEDS ORDERED: VANC25SO PO (10:28)
== END 2024-02-10 23:59 | disposition home or self-care (01) ==
LOC: RAD 09:10
PROVIDERS: ATTEND Nurse Practitioner Family
DX: Z53.9 Procedure and treatment not carried out, unspecified reason (principal); Z01.810 Encounter for preprocedural cardiovascular examination; I48.91 Unspecified atrial fibrillation; R94.30 Abnormal result of cardiovascular function study, unspecified
CPT/HCPCS: 78451; 87081; A9500; J2785

== ENCOUNTER 2024-02-29 21:51 | Emergency (ER) | payer MEDICARE, MEDICAID ==
[~2024-02-29] VITALS: Ht 160 cm; Wt 68.2 kg
[~2024-02-29 21:51] MED LIST changes: +DILT30TA2 PO; -DOCU-391 PO; -OXYB15TA19 PO; -QUET25TA36 PO; -SACU1TAB7 PO; +VANC25SO PO
[2024-03-01 00:08] VITALS: BP 112/78; PULSE 93; RESP 18; TEMP 97.4; O2SAT 95
== END 2024-03-01 00:10 | disposition home or self-care (01) ==
LOC: ER 21:52
DX: N82.3 Fistula of vagina to large intestine (principal); I11.0 Hypertensive heart disease with heart failure; I50.9 Heart failure, unspecified; E78.00 Pure hypercholesterolemia, unspecified; F32.A Depression, unspecified; I48.91 Unspecified atrial fibrillation; Z88.8 Allergy status to other drugs, medicaments and biological substances; Z79.899 Other long term (current) drug therapy; Z79.2 Long term (current) use of antibiotics; Z98.890 Other specified postprocedural states
CPT/HCPCS: 99283; 99284